=== PATIENT | female | born 1925 | race African-American/Black ===

== ENCOUNTER → 2016-10-18 | Outpatient (CLI) | payer OTHER ==
[~2016-10-18] MED LIST: ADULT LOW DOSE81 MG PO; DARVOCET-N 1001 EACH PO; LASIX 40 MG TAB40 M1 PO
--- NOTE | ~2016-10-18 | 2DMMODE ---
[facility] [employer] [place] [address] 2 D/M-MODE ECHOCARDIOGRAM Name: NAVEED BOSS Room #: REG CL Hua#: [id number] Admission: 10/18/16 Attend Phys: Omar Adkins MD Discharge: Date of : [birth year] Date of Service: 10/18/16 0939 Report #: [id number] THIS REPORT FOR: //name// Transthoracic Echocardiography Ordering physician: Omar Adkins Referring physician: Omar Adkins Exceptional Needs Teacher: Robyn Brunner Indications/History: Murmur, HTN. BP: HR: 75bpm Height: 60in Weight: 164.7lb Study data: M-mode, complete 2D, complete spectral Doppler, and color Doppler. Location: Echo laboratory. Routine. Image quality was adequate. 2D measurements Normal Normal LVID ED 38mm 36-57 IVS ED 12mm 6-11 LVID ES 25.2mm 23-40 LVPW ED 12.6mm 6-11 LA volume 28ml/m2 16-28 AoRoot diam 26.8mm 21-37 index ED LVOT diameter 20mm 18-23 Findings: Left ventricle: The cavity size was normal. There was moderate focal basal hypertrophy of the septum. Systolic function was hyperdynamic. The estimated ejection fraction was in the range of 65% to 70%. Wall motion was normal. Right ventricle: The cavity size was normal. Systolic function was normal. Right atrium: The atrium was normal in size. Left atrium: The atrium was dilated. Volume index: 28ml/m2 (S). Aortic valve: Mildly calcified leaflets. Doppler: There was no stenosis. No regurgitation. Peak velocity: 202cm/s (S). Peak gradient: 16.3mm Hg (S). Mitral valve: Mildly calcified annulus. Mildly calcified [address] [address] 2 D/M-MODE ECHOCARDIOGRAM Name: NAVEED BOSS Room #: MARIUSZ Underwood#: [id number] Admission: 10/18/16 Attend Phys: Omar Adkins MD Discharge: Date of : [birth year] Date of Service: 10/18/16 0939 Report #: [id number] leaflets . Doppler: There was no evidence for stenosis. Mild to moderate regurgitation. Peak E-wave velocity: 85.8cm/s. Peak gradient: 2.9mm Hg (D). Peak A-wave velocity: 98.2cm/s. Tricuspid valve: Structurally normal valve. Doppler: There was no evidence for stenosis. Trivial regurgitation. Regurgitant peak velocity: 213.9cm/s. Peak RV-RA gradient: 18mm Hg (S). Pulmonic valve: Poorly visualized. Doppler: There was no evidence for stenosis. Trivial regurgitation. Pericardium: There was no pericardial effusion. Aorta: Aortic root: The aortic root was normal in size. Pulmonary artery: Systolic pressure was estimated to be 23mm Hg. Diastolic function: Doppler parameters are consistent with abnormal left ventricular relaxation (grade 1 diastolic dysfunction). Systemic veins: Inferior vena cava: The vessel was normal in size; the respirophasic diameter changes were in the normal range (= 50%). Conclusions 1. Left ventricle: Systolic function was hyperdynamic. The estimated ejection fraction was in the range of 65% to 70%. Wall motion was normal. Doppler parameters are consistent with abnormal left ventricular relaxation (grade 1 diastolic dysfunction). 2. Aortic valve: Mildly calcified leaflets. There was no stenosis. No regurgitation. 3. Mitral valve: Mildly calcified annulus. Mildly calcified leaflets . Mild to moderate regurgitation. 4. Pericardium, extracardiac: There was no pericardial effusion. <ELECTRONICALLY SIGNED> By: Charbel Chery MD, FACC 10/18/16 1039 0939 1039 Charbel Chery MD, FACC /janae
== END ==
LOC: CV 10-13 08:44
DX: I10 Essential (primary) hypertension (principal); R01.1 Cardiac murmur, unspecified